=== PATIENT | female | born 1980 | race Caucasian/White ===

== ENCOUNTER 2017-01-12 02:40 | Emergency (ER) | payer MEDICAID ==
[~2017-01-12] VITALS: Ht 154.9 cm; Wt 77.5 kg
[2017-01-12] MEDS ORDERED: SODIUM CHLORIDE 0.9% 1,000ML IVBOLUS ONE (04:00)
[2017-01-12] MEDS ORDERED: ONDANSETRON 2MG/ML, 2ML IVPush ONE (04:00)
[2017-01-12] MEDS ORDERED: KETOROLAC 30 MG/1 ML IVPush ONE (04:00)
[2017-01-12] MEDS ORDERED: DEXAMETHASONE 4 MG TABLET PO ONE (04:00)
[2017-01-12] MEDS ORDERED: SODIUM CHLORIDE FLUSH 10ML SYR IVF ONE (04:00)
[2017-01-12] MEDS ORDERED: KETOROLAC 30 MG/1 ML ONE (04:09)
[2017-01-12] MEDS ORDERED: ONDANSETRON 2MG/ML, 2ML ONE (04:09)
[2017-01-12] MEDS ORDERED: DEXAMETHASONE 4 MG TABLET ONE (04:10)
[2017-01-12 04:20] LABS: BLOOD UREA NITROGEN 12 mg/dL (7-18)
[2017-01-12] MEDS ORDERED: LORazepam 0.5MG TABLET PO ONE (04:30)
[2017-01-12] MEDS ORDERED: LORazepam 1MG TABLET ONE (04:54)
[2017-01-12 05:08] VITALS: BP 121/71
== END 2017-01-12 05:12 | disposition home or self-care (01) ==
LOC: ED 03:41
DX: N39.0 Urinary tract infection, site not specified (principal); R30.0 Dysuria; J02.8 Acute pharyngitis due to other specified organisms
CPT/HCPCS: 36415; 80048; 81001; 82040; 84703; 85025; 87077; 87081; 87086; 87186; 87880; 96374; 96375; 99284; J1885; J2405; J7030

== ENCOUNTER 2017-04-26 01:13 | Emergency (ER) | payer MEDICAID ==
[~2017-04-26] VITALS: Ht 154.9 cm; Wt 75.3 kg
[2017-04-26 01:14] VITALS: BP 128/87
[2017-04-26] MEDS ORDERED: IBUPROFEN 200 MG TABLET PO ONE (02:00)
[2017-04-26] MEDS ORDERED: LORazepam 1MG TABLET PO ONE (02:00)
[2017-04-26] MEDS ORDERED: IBUPROFEN 200 MG TABLET ONE (02:14)
[2017-04-26] MEDS ORDERED: LORazepam 1MG TABLET ONE (02:14)
== END 2017-04-26 02:39 | disposition home or self-care (01) ==
LOC: ED 01:45
DX: S00.81XA Abrasion of other part of head, initial encounter (principal); F41.1 Generalized anxiety disorder; Y04.0XXA Assault by unarmed brawl or fight, initial encounter
CPT/HCPCS: 93005; 99283

== ENCOUNTER 2017-10-12 19:24 | Emergency (ER) | payer MEDICAID ==
[~2017-10-12] VITALS: Ht 154.9 cm; Wt 78.7 kg
[2017-10-12 20:03] LABS: BASOPHILS # (AUTO) 0.05 x10^3/uL (0-0.1); BASOPHILS % (AUTO) 1 % (0-1); EOSINOPHILS # (AUTO) 0.06 x10^3/uL (0-0.4); EOSINOPHILS % (AUTO) 1 % (1-7); LYMPHOCYTES # (AUTO) 1.33 x10^3/uL (1-3.4); LYMPHOCYTES % (AUTO) 21 % (22-44); MD MORPH REVIEW ONLY; MEAN CORPUSCULAR HEMOGLOBIN 19.8 pg (27.0-34.8); MEAN CORPUSCULAR HGB CONC 30.5 g/dL (32.4-35.8); MEAN CORPUSCULAR VOLUME 64.8 fL (80-100); MEAN PLATELET VOLUME 7.6 fL (7.4-10.4); MONOCYTES # (AUTO) 0.65 x10^3/uL (0.2-0.8); MONOCYTES % (AUTO) 10 % (2-9); NEUTROPHILS # (AUTO) 4.23 x10^3/uL (1.8-6.8); NEUTROPHILS % (AUTO) 67 % (42-75); PLATELET COUNT 481 x10^3/uL (130-400); RED BLOOD COUNT 4.24 x10^6/uL (3.82-5.3); RED CELL DISTRIBUTION WIDTH 20.3 % (9.6-15.2)
[2017-10-12 20:10] LABS: ALANINE AMINOTRANSFERASE 21 U/L (12-78); ALBUMIN 3.2 g/dL (3.4-5.0); ANION GAP 8 mmol/L (5-15); CALCIUM 7.8 mg/dL (8.5-10.1); CHLORIDE 105 mmol/L (98-107); CREATININE 0.61 mg/dL (0.55-1.02)
[2017-10-12 20:15] LABS: ALKALINE PHOSPHATASE 100 U/L (45-117); ANISOCYTOSIS 1+; BILIRUBIN,TOTAL 0.4 mg/dL (0.2-1.0); MICROCYTOSIS 2+; TOTAL PROTEIN 8.2 g/dL (6.4-8.2)
[2017-10-12 20:16] LABS: OVALOCYTES 1+; POLYCHROMASIA 1+
[2017-10-12 20:17] LABS: HYPOCHROMIA 2+
[2017-10-12 20:18] LABS: <PLATELET ESTIMATE> INCREASED; <PLT MORPHOLOGY> NORMAL PLT MORPH
[2017-10-12 20:25] LABS: HCT (SEDRATE) 27.5 % (34.6-47.8)
[2017-10-12] MEDS ORDERED: SODIUM CHLORIDE FLUSH 10ML SYR IVF ONE (20:30)
[2017-10-12] MEDS ORDERED: KETOROLAC 30 MG/1 ML IVPush ONE (20:30)
[2017-10-12] MEDS ORDERED: CEFTRIAXONE PMX 1GM/50ML 50 ML IVPB ONE (20:30)
[2017-10-12] MEDS ORDERED: CEFTRIAXONE PMX 1GM/50ML 50 ML ONE (20:33)
[2017-10-12] MEDS ORDERED: KETOROLAC 30 MG/1 ML ONE (20:33)
[2017-10-12 23:04] VITALS: BP 102/59
[2017-10-13 16:09] LABS: ANA SCREEN POSITIVE (Negative); ANTI-NUCLEAR ANTIBODY PATTERN SPECKLED
== END 2017-10-12 23:07 | disposition home or self-care (01) ==
LOC: ED 22:02
DX: M79.661 Pain in right lower leg (principal); L03.115 Cellulitis of right lower limb; D50.0 Iron deficiency anemia secondary to blood loss (chronic)
CPT/HCPCS: 36415; 80053; 83880; 84703; 85025; 85651; 86038; 86039; 93970; 96365; 96375; 99285; J0696; J1885

== ENCOUNTER 2018-03-30 07:07 | Emergency (ER) | payer MEDICAID ==
[~2018-03-30] VITALS: Ht 154.9 cm; Wt 77.7 kg
[2018-03-30] MEDS ORDERED: CARBAMIDE PEROXIDE EAR DROPS 6.5%, 15ML RIGHT EAR ONE (07:30)
[2018-03-30] MEDS ORDERED: CARBAMIDE PEROXIDE EAR DROPS 6.5%, 15ML ONE (07:37)
[2018-03-30 07:45] LABS: CULTURE INDICATED? YES; MICROSCOPIC INDICATED
[2018-03-30 07:54] LABS: BASOPHILS # (AUTO) 0.04 x10^3/uL (0-0.1); BASOPHILS % (AUTO) 1 % (0-1); EOSINOPHILS # (AUTO) 0.15 x10^3/uL (0-0.4); EOSINOPHILS % (AUTO) 2 % (1-7); LYMPHOCYTES # (AUTO) 2.02 x10^3/uL (1-3.4); LYMPHOCYTES % (AUTO) 28 % (22-44); MD NO; MEAN CORPUSCULAR HEMOGLOBIN 21.4 pg (27.0-34.8); MEAN CORPUSCULAR HGB CONC 31.3 g/dL (32.4-35.8); MEAN CORPUSCULAR VOLUME 68.4 fL (80-100); MEAN PLATELET VOLUME 8.3 fL (7.4-10.4); MONOCYTES # (AUTO) 0.54 x10^3/uL (0.2-0.8); MONOCYTES % (AUTO) 8 % (2-9); NEUTROPHILS # (AUTO) 4.46 x10^3/uL (1.8-6.8); NEUTROPHILS % (AUTO) 62 % (42-75); PLATELET COUNT 415 x10^3/uL (130-400); RED BLOOD COUNT 4.42 x10^6/uL (3.82-5.3); RED CELL DISTRIBUTION WIDTH 19.7 % (9.6-15.2)
[2018-03-30 07:57] LABS: ALBUMIN 3.5 g/dL (3.4-5.0); ANION GAP 5 mmol/L (5-15); CALCIUM 8.1 mg/dL (8.5-10.1); CHLORIDE 107 mmol/L (98-107)
[2018-03-30 09:12] VITALS: BP 118/75
== END 2018-03-30 09:33 | disposition home or self-care (01) ==
LOC: ED 08:24
DX: H61.21 Impacted cerumen, right ear (principal); N30.00 Acute cystitis without hematuria
CPT/HCPCS: 36415; 80048; 81001; 82040; 84703; 85025; 87077; 87086; 87186; 99284

== ENCOUNTER 2018-04-02 13:41 | Emergency (ER) | payer MEDICAID ==
[~2018-04-02] VITALS: Ht 154.9 cm; Wt 77.1 kg
[2018-04-02 13:45] VITALS: BP 130/76
[2018-04-02] MEDS ORDERED: CARBAMIDE PEROXIDE EAR DROPS 6.5%, 15ML RIGHT EAR ONE (14:00)
[2018-04-02] MEDS ORDERED: CARBAMIDE PEROXIDE EAR DROPS 6.5%, 15ML ONE (14:07)
== END 2018-04-02 14:53 | disposition home or self-care (01) ==
LOC: ED 14:40
DX: H61.21 Impacted cerumen, right ear (principal); F41.1 Generalized anxiety disorder
CPT/HCPCS: 69209; 99282

== ENCOUNTER 2018-10-06 07:30 | Emergency (ER) | payer MEDICAID ==
[~2018-10-06] VITALS: Ht 154.9 cm; Wt 77.0 kg
[2018-10-06] MEDS ORDERED: IBUP-1484 PO (07:51)
[2018-10-06] MEDS ORDERED: KETOROLAC 30 MG/1 ML IM ONE (08:00)
[2018-10-06] MEDS ORDERED: KETOROLAC 30 MG/1 ML ONE (08:14)
--- NOTE | 2018-10-06 08:18 | NUR ---
PT MEDICATED WITH TORADOL. UA COLLECTED AND SENT TO LAB. PT RESTING WITH NO COMPLAINTS. CALL BUTTON IN LAP.
[2018-10-06 08:45] LABS: BASOPHILS # (AUTO) 0.04 x10^3/uL (0-0.1); BASOPHILS % (AUTO) 1 % (0-1); EOSINOPHILS # (AUTO) 0.05 x10^3/uL (0-0.4); EOSINOPHILS % (AUTO) 1 % (1-7); LYMPHOCYTES # (AUTO) 1.45 x10^3/uL (1-3.4); LYMPHOCYTES % (AUTO) 25 % (22-44); MD NO; MEAN CORPUSCULAR HEMOGLOBIN 21.2 pg (27.0-34.8); MEAN CORPUSCULAR HGB CONC 31.1 g/dL (32.4-35.8); MEAN CORPUSCULAR VOLUME 68.3 fL (80-100); MEAN PLATELET VOLUME 7.9 fL (7.4-10.4); MONOCYTES # (AUTO) 0.48 x10^3/uL (0.2-0.8); MONOCYTES % (AUTO) 8 % (2-9); NEUTROPHILS # (AUTO) 3.85 x10^3/uL (1.8-6.8); NEUTROPHILS % (AUTO) 66 % (42-75); PLATELET COUNT 419 x10^3/uL (130-400); RED BLOOD COUNT 4.32 x10^6/uL (3.82-5.3)
[2018-10-06 08:48] LABS: MICROSCOPIC INDICATED
[2018-10-06 08:53] LABS: ANION GAP 4 mmol/L (5-15); CALCIUM 8.2 mg/dL (8.5-10.1); CHLORIDE 106 mmol/L (98-107); CREATININE 0.71 mg/dL (0.55-1.02)
[2018-10-06 09:07] LABS: CULTURE INDICATED? NO
[2018-10-06 09:46] VITALS: BP 94/59
== END 2018-10-06 09:49 | disposition home or self-care (01) ==
LOC: ED 08:12
DX: L03.116 Cellulitis of left lower limb (principal); R30.0 Dysuria; K02.9 Dental caries, unspecified; K08.89 Other specified disorders of teeth and supporting structures
CPT/HCPCS: 36415; 80048; 81001; 85025; 96372; 99283; J1885

== ENCOUNTER 2020-04-06 12:07 | Emergency (ER) | payer MEDICAID ==
[~2020-04-06] VITALS: Ht 154.9 cm; Wt 73.9 kg
[~2020-04-06 12:07] MED LIST: IBUP-1902 PO
--- NOTE | 2020-04-06 12:36 | NUR ---
christina rn: this is a 40 yr old female that has been experiencing a fever, body aches, one episode of diarrhea, and lack of energy. pt states this has been going on for one week and is here to get cleared to go back to work. pt does state she is still experiencing symptoms but can't miss anymore work. pt denies any chest pain, or sob with illness. pt placed on o2 and nibp monitoring
--- NOTE | 2020-04-06 13:21 | NUR ---
RAD IN ROOM.
[2020-04-06] MEDS ORDERED: SODIUM CHLORIDE FLUSH 10ML SYR IVF ONE (13:30)
[2020-04-06] MEDS ORDERED: SODIUM CHLORIDE 0.9% 1,000ML IVBOLUS ONE (13:30)
--- NOTE | 2020-04-06 13:45 | NUR ---
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 PT REFUSING 3RD ATTEMPT BY THIS RN. STATES SHE JUST WANTS LAB TO COME DRAW AND DOES NOT WANT IVF.
--- NOTE | 2020-04-06 13:51 | NUR ---
PT AMBULATED TO THE BR W/ A STEADY GAIT. URINE COLLECTED AND SENT TO LAB. LAB AT BEDSIDE FOR DRAW.
[2020-04-06 14:08] LABS: MICROSCOPIC INDICATED
[2020-04-06 14:14] LABS: ALANINE AMINOTRANSFERASE 18 U/L (12-78); ALBUMIN 3.5 g/dL (3.4-5.0); ANION GAP 5 mmol/L (5-15); CALCIUM 8.2 mg/dL (8.5-10.1); CHLORIDE 106 mmol/L (98-107); CREATININE 0.64 mg/dL (0.55-1.02)
[2020-04-06 14:16] LABS: ALKALINE PHOSPHATASE 91 U/L (45-117); BILIRUBIN,TOTAL 0.3 mg/dL (0.2-1.0); TOTAL PROTEIN 8.2 g/dL (6.4-8.2)
[2020-04-06 14:25] LABS: BASOPHILS # (AUTO) 0.04 x10^3/uL (0-0.1); BASOPHILS % (AUTO) 1 % (0-1); EOSINOPHILS # (AUTO) 0.03 x10^3/uL (0-0.4); EOSINOPHILS % (AUTO) 1 % (1-7); LYMPHOCYTES # (AUTO) 1.57 x10^3/uL (1-3.4); LYMPHOCYTES % (AUTO) 35 % (22-44); MD MORPH REVIEW ONLY; MEAN CORPUSCULAR HEMOGLOBIN 19.8 pg (27.0-34.8); MEAN CORPUSCULAR VOLUME 66.2 fL (80-100); MEAN PLATELET VOLUME 7.8 fL (7.4-10.4); MONOCYTES # (AUTO) 0.37 x10^3/uL (0.2-0.8); MONOCYTES % (AUTO) 8 % (2-9); NEUTROPHILS # (AUTO) 2.52 x10^3/uL (1.8-6.8); NEUTROPHILS % (AUTO) 56 % (42-75); PLATELET COUNT 366 x10^3/uL (130-400); RED BLOOD COUNT 4.97 x10^6/uL (3.82-5.3); RED CELL DISTRIBUTION WIDTH 20.6 % (9.6-15.2)
[2020-04-06 14:26] LABS: ANISOCYTOSIS 1+; HYPOCHROMIA 2+; MICROCYTOSIS 2+; POLYCHROMASIA 1+
[2020-04-06 14:27] LABS: <PLATELET ESTIMATE> ADEQUATE; OVALOCYTES 1+
[2020-04-06 14:28] LABS: <PLT MORPHOLOGY> NORMAL PLT MORPH; MEAN CORPUSCULAR HGB CONC 29.9 g/dL (32.4-35.8)
--- NOTE | 2020-04-06 14:45 | NUR ---
AT BEDSIDE FOR RECHECK.
--- NOTE | 2020-04-06 14:46 | NUR ---
PER . PT REFUSED COVID SWAB.
[2020-04-06 15:04] VITALS: BP 120/62
== END 2020-04-06 15:12 | disposition home or self-care (01) ==
LOC: ED 14:20
DX: N30.00 Acute cystitis without hematuria (principal); D50.0 Iron deficiency anemia secondary to blood loss (chronic)
CPT/HCPCS: 36415; 71045; 80053; 81001; 85025; 87077; 87086; 87186; 99284

== ENCOUNTER 2020-09-28 04:26 | Emergency (ER) | payer MEDICAID ==
[~2020-09-28] VITALS: Ht 154.9 cm; Wt 72.6 kg
[2020-09-28] MEDS ORDERED: BENZONATATE 100 MG CAPSULE PO ONE (05:00)
[2020-09-28] MEDS ORDERED: DEXAMETHASONE 4 MG TABLET PO ONE (05:00)
[2020-09-28] MEDS ORDERED: BENZONATATE 100 MG CAPSULE ONE (05:03)
[2020-09-28] MEDS ORDERED: DEXAMETHASONE 4 MG TABLET ONE (05:03)
[2020-09-28 06:40] VITALS: BP 109/67
--- NOTE | 2020-09-28 06:40 | NUR ---
PATIENT CLEARED FOR DISCHARGE. NO NOTED ACUTE DISTRESS. AMBULATORY TO DISCHARGE WITH BELONGINGS WITHOUT COMPLICATIONS. VERBALIZED UNDERSTANDING OF SELF CARE AND FOLLOW UP CARE AT HOME.
== END 2020-09-28 06:43 | disposition home or self-care (01) ==
LOC: ED 05:29
DX: B34.9 Viral infection, unspecified (principal); Z20.822 Contact with and (suspected) exposure to COVID-19; R06.02 Shortness of breath
CPT/HCPCS: 71045; 99284; U0003

== ENCOUNTER 2021-03-24 06:45 | Emergency (ER) | payer MEDICAID ==
[~2021-03-24] VITALS: Ht 154.9 cm; Wt 68.5 kg
--- NOTE | 2021-03-24 07:12 | NUR ---
PT STATES ALL SX LISTED IN TRIAGE, BOYFRIEND SICK WELL. RESP ISOLATION CART AT DOORWAY.
--- NOTE | 2021-03-24 07:27 | NUR ---
PT SWABBED FOR COVID, SPECIMEN WALKED TO LAB.
[2021-03-24] MEDS ORDERED: PHENAZOPYRIDINE 200 MG TABLET ONE (07:35)
[2021-03-24 07:56] LABS: MICROSCOPIC INDICATED
[2021-03-24] MEDS ORDERED: PHENAZOPYRIDINE 200 MG TABLET PO ONE (08:00)
[2021-03-24 08:10] LABS: BASOPHILS % (AUTO) 1 % (0-1); EOSINOPHILS % (AUTO) 1 % (1-7); LYMPHOCYTES % (AUTO) 42 % (22-44); MEAN CORPUSCULAR HGB CONC 31.1 g/dL (32.4-35.8); MEAN PLATELET VOLUME 7.9 fL (7.4-10.4); MONOCYTES % (AUTO) 10 % (2-9); NEUTROPHILS % (AUTO) 46 % (42-75); PLATELET COUNT 284 x10^3/uL (130-400)
[2021-03-24 08:18] LABS: ANION GAP 5 mmol/L (5-15); CALCIUM 7.9 mg/dL (8.5-10.1); CHLORIDE 104 mmol/L (98-107)
[2021-03-24] MEDS ORDERED: ONDANSETRON ODT 4 MG ONE (08:41)
[2021-03-24 08:59] VITALS: BP 121/62
[2021-03-24] MEDS ORDERED: ONDANSETRON ODT 4 MG PO ONE (09:00)
== END 2021-03-24 09:01 | disposition home or self-care (01) ==
LOC: ED 08:11
DX: U07.1 COVID-19 (principal); J12.82 Pneumonia due to coronavirus disease 2019; N30.00 Acute cystitis without hematuria; R06.02 Shortness of breath; Z87.891 Personal history of nicotine dependence
CPT/HCPCS: 36415; 71045; 80048; 81001; 82040; 84703; 85025; 87077; 87086; 99284; Q0162; U0003; U0005; 87186